=== PATIENT | male | born 1990 | race African-American/Black ===

== ENCOUNTER 2020-01-14 13:28 | Emergency (ER) | payer MEDICAID ==
[~2020-01-14] VITALS: Ht 177.8 cm; Wt 82.0 kg
[2020-01-14 13:35] VITALS: BP 136/98
[2020-01-14] MEDS ORDERED: SODIUM CHLORIDE 0.9% 1,000 ML IV ONE (13:49)
[2020-01-14 15:14] LABS: CLARITY URINE CLEAR (CLEAR); COLOR URINE YELLOW (YELLOW); KETONES URINE NEGATIVE (NEGATIVE); LEUKOCYTE ESTERASE URINE NEGATIVE (NEGATIVE); NITRITE URINE NEGATIVE (NEGATIVE); OCCULT BLOOD URINE NEGATIVE (NEGATIVE); PROTEIN URINE NEGATIVE (NEGATIVE); SPECIFIC GRAVITY URINE 1.013 (1.005-1.030)
[2020-01-14 15:40] LABS: *AMPHETAMINES SCREEN URINE NEGATIVE (NEGATIVE); *BARBITURATES SCREEN URINE NEGATIVE (NEGATIVE); *BENZODIAZEPINES SCREEN URINE NEGATIVE (NEGATIVE); CANNABINOID URINE SCREEN PRESUMTIVE POSITIVE (NEGATIVE)
[2020-01-14 15:41] LABS: *COCAINE SCREEN URINE NEGATIVE (NEGATIVE); METHADONE URINE SCREEN NEGATIVE (NEGATIVE); OPIATES URINE SCREEN NEGATIVE (NEGATIVE); PHENCYCLIDINE URINE SCREEN PRESUMTIVE POSITIVE (NEGATIVE)
[2020-01-14 15:41] LABS: BASOPHILS % 0.6 % (0.0-2.0); EOSINOPHILS % 1.8 % (0.0-5.0); HEMATOCRIT. 43.8 % (42.0-52.0); HEMOGLOBIN. 14.5 g/dL (14.0-18.0); LYMPHOCYTES % 23.4 % (20.0-50.0); MEAN CORPUSCULAR HEMOGLOBIN 27.1 pg (28.0-32.0); MEAN CORPUSCULAR VOLUME 81.9 fL (80.0-94.0); MEAN PLATELET VOLUME 8.1 fl (7.4-10.4); MONOCYTES % 6.8 % (2.0-8.0); NEUTROPHILS % 67.4 % (40.0-76.0); PLATELET 397 x1000/uL (130-400); RED BLOOD CELL COUNT 5.34 mill/uL (4.7-6.1); RED CELL DISTRIBUTION WIDTH 14.6 % (11.6-14.6)
[2020-01-14 15:46] LABS: CHLORIDE 113 mEq/L (98-107)
[2020-01-14 15:51] LABS: ETHANOL BLOOD < 10 mg/dL
== END 2020-01-14 17:52 | disposition left against medical advice (07) ==
LOC: ER 13:28 → EDBD 13:28 → ER 17:52
DX: F16.10 Hallucinogen abuse, uncomplicated (principal); F12.10 Cannabis abuse, uncomplicated; Z59.0 Homelessness
CPT/HCPCS: 36415; 70450; 71045; 80053; 80305; 80320; 81003; 85025; 96360; 99285; J7030; G0480